=== PATIENT | female | born 1960 | race African-American/Black ===

== ENCOUNTER 2022-08-13 22:25 | Inpatient (IN) | payer BC ==
[~2022-08-13] VITALS: Ht 157.5 cm; Wt 64.4 kg
[2022-08-13 23:20] LABS: CHLORIDE 107 mEq/L (98-107)
[2022-08-13 23:26] LABS: PARTIAL THROMBOPLASTIN TIME 24.2 sec (23.4-31.0); PROTHROMBIN TIME 10.4 sec (9.6-11.0)
[2022-08-13 23:33] LABS: HEMATOCRIT. 39.3 % (36.0-48.0); HEMOGLOBIN. 13.5 g/dL (12.0-16.0); MEAN CORPUSCULAR HEMOGLOBIN 29.1 pg (28.0-32.0); MEAN CORPUSCULAR VOLUME 85.1 fL (81.0-99.0); MEAN PLATELET VOLUME 8.3 fl (7.4-10.4); PLATELET 240 x1000/uL (130-400); RED BLOOD CELL COUNT 4.62 mill/uL (4.2-5.4)
[2022-08-13 23:46] LABS: BG CARBOXYHEMOGLOBIN 0.4 % (0.5-1.5); BG DEOXYHEMOGLOBIN 5.7 % (0.0-5.0); BG FRACTION INSPIRED OXYGEN 21; BG HCO3 ACT 22.7 mmol/L (22.0-26.0); BG METHEMOGLOBIN 0.4 % (0.0-1.5); BG OXYGEN SATURATION 94.3 % (92.0-98.5); BG OXYHEMOGLOBIN 93.5 % (94.0-97.0); BG PO2 82.9 mmHg (75.0-100.0); BG SAMPLE SITE RIGHT RADIAL; BG TOTAL HEMOGLOBIN 13.3 g/dL (12.0-18.0); BG VENT MODE ROOM AIR
[2022-08-13] MEDS ORDERED: LORAZEPAM 2MG/ML CPJ ONE (23:52)
[2022-08-14] VITALS (31 sets, daily range): BP systolic 131–163; BP diastolic 79–118
[2022-08-14] MEDS ORDERED: LORAZEPAM 2MG/ML CPJ IV ONE
[2022-08-14 00:03] LABS: ETHANOL BLOOD 347 mg/dL
[2022-08-14] MEDS ORDERED: TENECTEPLASE 50MG/VIAL IV SCH (00:15)
[2022-08-14 01:15] LABS: PLATELET ESTIMATE NORMAL
[2022-08-14] MEDS ORDERED: IOHEXOL-350 100 ML BOTTLE ONE (02:32)
[2022-08-14] MEDS ORDERED: DEXTROSE 50% WATER 50ML SYRINGE IV PRN (04:30)
[2022-08-14] MEDS ORDERED: THIAMINE HCL 100 MG, FOLIC ACID 1 MG, MVI, ADULT NO.1 10 ML in SODIUM CHLORIDE 0.9% 1,0... IV NR ×4 (04:30)
[2022-08-14] MEDS ORDERED: LORAZEPAM 2MG/ML CPJ IV PRN (04:45)
[2022-08-14 05:28] LABS: HEMATOCRIT. 37.4 % (36.0-48.0); HEMOGLOBIN. 12.4 g/dL (12.0-16.0); MEAN CORPUSCULAR HEMOGLOBIN 28.6 pg (28.0-32.0); MEAN CORPUSCULAR VOLUME 86.2 fL (81.0-99.0); MEAN PLATELET VOLUME 8.4 fl (7.4-10.4); PLATELET 206 x1000/uL (130-400); RED BLOOD CELL COUNT 4.34 mill/uL (4.2-5.4); RED CELL DISTRIBUTION WIDTH 18.8 % (11.6-14.6)
[2022-08-14 05:43] LABS: CHLORIDE 117 mEq/L (98-107)
[2022-08-14 08:03] LABS: CLARITY URINE CLOUDY (CLEAR); COLOR URINE YELLOW (YELLOW); KETONES URINE NEGATIVE (NEGATIVE); LEUKOCYTE ESTERASE URINE NEGATIVE (NEGATIVE); NITRITE URINE NEGATIVE (NEGATIVE); OCCULT BLOOD URINE NEGATIVE (NEGATIVE); PH URINE 5.5 (4.5-8.0); PROTEIN URINE NEGATIVE (NEGATIVE); SPECIFIC GRAVITY URINE 1.041 (1.005-1.030); UROBILINOGEN URINE 0.2 E.U./dL (0.2-1.0)
[2022-08-14 08:19] LABS: *AMPHETAMINES SCREEN URINE NEGATIVE (NEGATIVE); *BARBITURATES SCREEN URINE NEGATIVE (NEGATIVE); *BENZODIAZEPINES SCREEN URINE NEGATIVE (NEGATIVE); *COCAINE SCREEN URINE NEGATIVE (NEGATIVE); CANNABINOID URINE SCREEN NEGATIVE (NEGATIVE); METHADONE URINE SCREEN NEGATIVE (NEGATIVE); OPIATES URINE SCREEN NEGATIVE (NEGATIVE); PHENCYCLIDINE URINE SCREEN NEGATIVE (NEGATIVE)
[2022-08-14 09:07] LABS: PLATELET ESTIMATE NORMAL
[2022-08-14] MEDS: BLOOD SUGAR DIAGNOSTIC STRIP TEST SCH ×4 (09:13→20:51)
[2022-08-14] MEDS ORDERED: LABETALOL 5MG/ML SYR 20 MG/4 ML SYRINGE IV PRN (09:15)
[2022-08-14 09:31] LABS: CHLORIDE 112 mEq/L (98-107)
[2022-08-14 09:35] LABS: PHOSPHORUS 3.9 mg/dL (2.5-4.9)
[2022-08-14 09:56] LABS: T4 FREE 0.73 ng/dL (0.76-1.46)
[2022-08-14 10:23] LABS: VITAMIN B12 SERUM 552 pg/mL (211-911)
[2022-08-14 10:26] LABS: FOLIC ACID (FOLATE) SERUM > 20.00 ng/mL (>5.38)
[2022-08-14] MEDS ORDERED: ZOLP10TA2 MT (18:17)
[2022-08-14] MEDS ORDERED: SIMV-43 MT (18:17)
[2022-08-14] MEDS ORDERED: ATEN-42 MT (18:17)
[2022-08-14] MEDS ORDERED: ESCI10TA PO (18:17)
[2022-08-14] MEDS: FAMOTIDINE 20MG TABLET PO SCH (20:41)
[2022-08-14] MEDS: ATORVASTATIN CALCIUM 40MG TABLET PO SCH (20:41)
[2022-08-14] MEDS ORDERED: ATORVASTATIN CALCIUM 40MG TABLET PO SCH (21:00)
[2022-08-15] VITALS (43 sets, daily range): BP systolic 114–165; BP diastolic 49–105
[2022-08-15 04:40] LABS: BASOPHILS % 0.6 % (0.0-2.0); HEMATOCRIT. 37.6 % (36.0-48.0); HEMOGLOBIN. 12.6 g/dL (12.0-16.0); LYMPHOCYTES % 57.7 % (20.0-50.0); MEAN CORPUSCULAR HEMOGLOBIN 28.2 pg (28.0-32.0); MEAN CORPUSCULAR VOLUME 84.2 fL (81.0-99.0); MEAN PLATELET VOLUME 8.5 fl (7.4-10.4); MONOCYTES % 9.1 % (2.0-8.0); NEUTROPHILS % 30.6 % (40.0-76.0); PLATELET 220 x1000/uL (130-400); RED BLOOD CELL COUNT 4.47 mill/uL (4.2-5.4); RED CELL DISTRIBUTION WIDTH 19.1 % (11.6-14.6)
[2022-08-15 04:50] LABS: CHLORIDE 104 mEq/L (98-107)
[2022-08-15 05:00] LABS: PHOSPHORUS 3.8 mg/dL (2.5-4.9)
[2022-08-15] MEDS ORDERED: ACETAMINOPHEN 325MG TABLET PO PRN (06:00)
[2022-08-15] MEDS: BLOOD SUGAR DIAGNOSTIC STRIP TEST SCH ×4 (07:11→21:00)
[2022-08-15] MEDS: FOLIC ACID 1MG TABLET PO SCH (09:01)
[2022-08-15] MEDS: THIAMINE HCL 100MG TABLET PO SCH (09:01)
[2022-08-15] MEDS: FAMOTIDINE 20MG TABLET PO SCH ×2 (09:01→20:47)
[2022-08-15] MEDS: LISINOPRIL 10MG TABLET PO SCH (15:52)
[2022-08-15] MEDS: ATORVASTATIN CALCIUM 40MG TABLET PO SCH (20:47)
[2022-08-16] VITALS: BP 141/94
[2022-08-16 04:00] VITALS: BP 126/77
[2022-08-16 08:00] VITALS: BP 143/94
[2022-08-16] MEDS: ASPIRIN 81MG TABLET PO SCH (09:10)
[2022-08-16] MEDS: THIAMINE HCL 100MG TABLET PO SCH (09:10)
[2022-08-16] MEDS: FOLIC ACID 1MG TABLET PO SCH (09:10)
[2022-08-16] MEDS: FAMOTIDINE 20MG TABLET PO SCH ×2 (09:10→22:05)
[2022-08-16] MEDS: LISINOPRIL 10MG TABLET PO SCH (09:13)
[2022-08-16 10:11] LABS: BASOPHILS % 0.6 % (0.0-2.0); EOSINOPHILS % 3.4 % (0.0-5.0); HEMATOCRIT. 38.7 % (36.0-48.0); HEMOGLOBIN. 13.3 g/dL (12.0-16.0); LYMPHOCYTES % 56.5 % (20.0-50.0); MEAN CORPUSCULAR HEMOGLOBIN 28.9 pg (28.0-32.0); MEAN CORPUSCULAR VOLUME 84.3 fL (81.0-99.0); MEAN PLATELET VOLUME 8.7 fl (7.4-10.4); MONOCYTES % 9.9 % (2.0-8.0); NEUTROPHILS % 29.6 % (40.0-76.0); PLATELET 208 x1000/uL (130-400); RED CELL DISTRIBUTION WIDTH 18.9 % (11.6-14.6)
[2022-08-16 10:28] LABS: CHLORIDE 102 mEq/L (98-107)
[2022-08-16] MEDS: BLOOD SUGAR DIAGNOSTIC STRIP TEST SCH ×4 (11:40→21:00)
[2022-08-16 12:00] VITALS: BP 134/84
[2022-08-16 16:00] VITALS: BP 132/89
[2022-08-16 20:00] VITALS: BP 126/84
[2022-08-16] MEDS: ATORVASTATIN CALCIUM 40MG TABLET PO SCH (22:05)
[2022-08-16] MEDS: MELATONIN 3MG TABLET PO PRN (22:05)
[2022-08-17] VITALS: BP 118/78
[2022-08-17 04:00] VITALS: BP 112/64
[2022-08-17] MEDS: BLOOD SUGAR DIAGNOSTIC STRIP TEST SCH ×4 (05:54→21:00)
[2022-08-17 06:29] LABS: BASOPHILS % 0.7 % (0.0-2.0); EOSINOPHILS % 2.6 % (0.0-5.0); HEMATOCRIT. 37.7 % (36.0-48.0); HEMOGLOBIN. 12.9 g/dL (12.0-16.0); LYMPHOCYTES % 48.6 % (20.0-50.0); MEAN CORPUSCULAR HEMOGLOBIN 28.7 pg (28.0-32.0); MEAN CORPUSCULAR VOLUME 83.8 fL (81.0-99.0); MEAN PLATELET VOLUME 8.8 fl (7.4-10.4); MONOCYTES % 7.7 % (2.0-8.0); NEUTROPHILS % 40.4 % (40.0-76.0); PLATELET 212 x1000/uL (130-400)
[2022-08-17 07:02] LABS: CHLORIDE 106 mEq/L (98-107)
[2022-08-17 07:05] LABS: PHOSPHORUS 4.4 mg/dL (2.5-4.9)
[2022-08-17 08:00] VITALS: BP 104/72
[2022-08-17] MEDS: LISINOPRIL 10MG TABLET PO SCH (09:00)
[2022-08-17] MEDS: THIAMINE HCL 100MG TABLET PO SCH (09:14)
[2022-08-17] MEDS: FOLIC ACID 1MG TABLET PO SCH (09:15)
[2022-08-17] MEDS: ASPIRIN 81MG TABLET PO SCH (09:15)
[2022-08-17] MEDS: FAMOTIDINE 20MG TABLET PO SCH ×2 (09:16→22:29)
[2022-08-17 12:00] VITALS: BP 107/76
[2022-08-17 16:00] VITALS: BP 121/82
[2022-08-17 20:00] VITALS: BP 123/82
[2022-08-17] MEDS: MELATONIN 3MG TABLET PO PRN (22:28)
[2022-08-17] MEDS: ATORVASTATIN CALCIUM 40MG TABLET PO SCH (22:29)
[2022-08-17] MEDS ORDERED: ZOLPIDEM TARTRATE 5MG TABLET PO NR (22:45)
[2022-08-18 04:00] VITALS: BP 118/82
[2022-08-18 06:29] LABS: HEMOGLOBIN 13.3 g/dL (12.0-16.0); MEAN CORPUSCULAR HEMOGLOBIN 29.2 pg (28.0-32.0); MEAN CORPUSCULAR VOLUME 85.4 fL (81.0-99.0); PLATELET 201 x1000/uL (130-400); RED BLOOD CELL COUNT 4.57 mill/uL (4.2-5.4); RED CELL DISTRIBUTION WIDTH 19.1 % (11.6-14.6)
[2022-08-18] MEDS: BLOOD SUGAR DIAGNOSTIC STRIP TEST SCH ×2 (06:40→11:40)
[2022-08-18 06:52] LABS: CHLORIDE 104 mEq/L (98-107)
[2022-08-18 06:56] LABS: PROTHROMBIN TIME 10.7 sec (9.6-11.0)
[2022-08-18 06:58] LABS: PHOSPHORUS 4.5 mg/dL (2.5-4.9)
[2022-08-18 08:00] VITALS: BP 115/78
[2022-08-18] MEDS ORDERED: FENTANYL CITRATE/PF 50MCG/ML 2ML VIAL ONE (08:02)
[2022-08-18] MEDS ORDERED: TETRACAINE/BENZOCAINE/BUTAMBEN 20 GM SPRAY MM ONE (08:02)
[2022-08-18] MEDS ORDERED: MIDAZOLAM HCL 5 MG/5 ML VIAL ONE (08:02)
[2022-08-18] MEDS ORDERED: LIDOCAINE 2% 6ML GLYDO MM ONE (08:02)
[2022-08-18] MEDS ORDERED: DIPHENHYDRAMINE 50MG/ML VIAL ONE (08:19)
[2022-08-18 12:00] VITALS: BP 107/72
[2022-08-18] MEDS: LISINOPRIL 10MG TABLET PO SCH (12:00)
[2022-08-18] MEDS: THIAMINE HCL 100MG TABLET PO SCH (12:05)
[2022-08-18] MEDS: ASPIRIN 81MG TABLET PO SCH (12:05)
[2022-08-18] MEDS: FOLIC ACID 1MG TABLET PO SCH (12:05)
[2022-08-18] MEDS: FAMOTIDINE 20MG TABLET PO SCH (12:06)
[2022-08-18] MEDS ORDERED: LIP40 PO (14:10)
[2022-08-18] MEDS ORDERED: LISI10TA26 PO (14:10)
[2022-08-18] MEDS ORDERED: ASPI-1160 PO (14:10)
[2022-08-18 16:00] VITALS: BP 122/84
[2022-08-18 16:05] VITALS: BP 122/84
== END 2022-08-18 18:15 | disposition home or self-care (01) | DRG 61 ==
LOC: ER 22:25 → MICUNO 08-14 01:20 → EDBEDREQ 08-14 07:47 → 7EST 08-15 18:04
PROVIDERS: ADMIT Internal Medicine; ATTEND Internal Medicine
PROC: 3E03317 Introduction of Other Thrombolytic into Peripheral Vein, Percutaneous Approach (ICD-10-PCS; 2022-08-14)
PROC: 4A00X4Z Measurement of Central Nervous Electrical Activity, External Approach (ICD-10-PCS; principal; 2022-08-18)
DX: I63.9 Cerebral infarction, unspecified (principal); G92.8 Other toxic encephalopathy; G93.5 Compression of brain; F10.129 Alcohol abuse with intoxication, unspecified; Z20.822 Contact with and (suspected) exposure to COVID-19; G93.89 Other specified disorders of brain; E87.5 Hyperkalemia; R73.9 Hyperglycemia, unspecified; Z79.82 Long term (current) use of aspirin; Z79.899 Other long term (current) drug therapy; R29.705 NIHSS score 5; Y90.8 Blood alcohol level of 240 mg/100 ml or more
CPT/HCPCS: 36415; 36600; 70496; 70498; 70551; 71045; 80048; 80053; 80061; 80305; 80307; 80320; 80329; 81003; 82140; 82330; 82375; 82607; 82746; 82805; 82962; 83036; 83540; 83550; 83735; 83880; 83970; 84100; 84425; 84439; 84443; 84484; 85025; 85027; 87426; 93005; 93306; 93312; 93970; 95816; 97162; 99291; J1200; J2060; J2250; J2997; J3010; J3411; J3490; J7030; Q9967; G0480

== ENCOUNTER 2024-05-28 16:57 | Emergency (ER) | payer BC ==
[~2024-05-28] VITALS: Ht 165.1 cm; Wt 70.0 kg
[~2024-05-28 16:57] MED LIST: ASPI-1160 PO; ESCI10TA PO; LIP40 PO; LISI10TA26 PO; ZOLP10TA2 MT
[2024-05-28 17:00] VITALS: O2SAT 100
[2024-05-28 18:00] LABS: CHLORIDE 100 mEq/L (98-107); POTASSIUM 3.7 mEq/L (3.5-5.1); SODIUM 137 mEq/L (136-145)
[2024-05-28 18:01] LABS: CALCIUM 11.1 mg/dL (8.7-10.4); CARBON DIOXIDE 28 mEq/L (21-32)
[2024-05-28 18:06] LABS: GLUCOSE 119 mg/dL (70-105); UREA NITROGEN BLOOD 12 mg/dL (9-23)
[2024-05-28 18:07] LABS: BASOPHILS % 0.9 % (0.0-2.0); EOSINOPHILS % 0.4 % (0.0-5.0); HEMOGLOBIN. 13.7 g/dL (12.0-16.0); LYMPHOCYTES % 28.1 % (20.0-50.0); MEAN CORPUSCULAR HEMOGLOBIN 30.1 pg (28.0-32.0); MEAN CORPUSCULAR HGB CONC 34.1 g/dL (31.0-37.0); MEAN CORPUSCULAR VOLUME 88.1 fL (81.0-99.0); MEAN PLATELET VOLUME 8.6 fl (7.4-10.4); MONOCYTES % 8.1 % (2.0-8.0); NEUTROPHILS % 62.5 % (40.0-76.0); PLATELET 209 x1000/uL (130-400); RED BLOOD CELL COUNT 4.55 mill/uL (4.2-5.4); RED CELL DISTRIBUTION WIDTH 18.1 % (11.6-14.6); TROPONIN I HIGH SENSITIVITY 4 ng/L (3.0-34); WHITE BLOOD COUNT 6.2 x1000/uL (4.5-11.0)
[2024-05-28 18:12] LABS: ETHANOL BLOOD < 10 mg/dL (<10)
[2024-05-28 20:29] VITALS: BP 122/74; PULSE 76; RESP 18; TEMP 36.78072; O2SAT 98
== END 2024-05-28 20:44 | disposition home or self-care (01) ==
LOC: ER 16:57
DX: R55 Syncope and collapse (principal); Z88.0 Allergy status to penicillin; Z79.899 Other long term (current) drug therapy
CPT/HCPCS: 36415; 80048; 80320; 84484; 85025; 99284; G0480

== ENCOUNTER 2024-06-04 21:00 | Emergency (ER) | payer BC ==
[~2024-06-04] VITALS: Ht 157.5 cm; Wt 61.3 kg
[2024-06-04 21:04] VITALS: O2SAT 98
[2024-06-04] MEDS: IBUPROFEN 600MG TABLET PO ONE (23:04)
[2024-06-05] MEDS ORDERED: NAPR-1176 MT (00:50)
[2024-06-05] MEDS ORDERED: CYCL10TA21 MT (00:50)
[2024-06-05 02:12] VITALS: BP 138/88; PULSE 91; RESP 20; TEMP 36.61404; O2SAT 100
== END 2024-06-05 01:00 | disposition home or self-care (01) ==
LOC: ER 21:00
DX: S60.211A Contusion of right wrist, initial encounter (principal); I10 Essential (primary) hypertension; Z79.899 Other long term (current) drug therapy; Z88.0 Allergy status to penicillin; W18.39XA Other fall on same level, initial encounter; Y93.89 Activity, other specified; Y92.89 Other specified places as the place of occurrence of the external cause; Y99.8 Other external cause status
CPT/HCPCS: 29125; 73100; 73120; 99284